=== PATIENT | male | born 1960 | race Two or more races ===

== ENCOUNTER → 2016-08-04 | Outpatient (CLI) | payer BC ==
[~2016-08-04] MED LIST: AMLODIPINE BESYL5 MG PO; ASPIRIN81 M2 PO; ASPIRIN81 MG PO; ATORVASTATIN CA20 MG PO; FISH OIL 1,2001 EAC5 PO; FISH OIL 500 M1 EAC1 PO; FISH OIL 500 MG1 CAP PO; FISH OIL CONCET1 CAP PO; GARLIC1 CAP PO; GARLIC1 EACH PO; GARLIQUE5000 MCG PO; GLUCOPHAGE850 MG PO; HYDROCODON-ACE1 EAC7 PO; LEVAQUIN PO; LIPITOR20 MG PO; MEGA MULTIVIT1 EAC1 PO; METOPROLOL SUCC25 MG PO; METOPROLOL TART25 MG PO; MULTIVITAMINS1 EAC3
[2016-08-05 00:01] LABS: CHOLESTEROL 129 mg/dL (0-200); HDL CHOLESTEROL 32 mg/dL (29-75); LDL CHOLESTEROL 72 mg/dL (-130); LDL/HDL RATIO 2 RATIO (0-4); TRIGLYCERIDES 126 mg/dL (10-160)
== END | disposition home or self-care (01) ==
LOC: CLAB 23:11
PROVIDERS: Internal Medicine Cardiovascular Disease
DX: E78.4 Other hyperlipidemia (principal)
CPT/HCPCS: 80061

== ENCOUNTER 2016-10-23 10:18 | Inpatient (IN) | payer BC ==
[~2016-10-23] VITALS: Ht 147.3 cm; Wt 60.0 kg
--- NOTE | ~2016-10-23 | CO ---
Unit #: [id number] #: [id number] Patient: OXANA MORSE [id number] [address] [place], [place] [address] [id number] MR#: [id number] NAME: OXANA MORSE ROOM: [facility] Age: 56 Sex: M Admission Date: 10/23/2016 : 1960 Attending Physician: Jake Umaña M.D. Primary Care Physician: David Canada M.D. Consultation Date: 10/24/2016 CONSULTATION REPORT REASON FOR CONSULT ICU management. CHIEF COMPLAINT Unable to obtain from the patient but on presentation was abdominal pain, nausea, vomiting. HISTORY OF PRESENT ILLNESS This is a very pleasant 56-year-old male with past medical history significant for hypertension, hyperlipidemia, coronary artery disease and coronary artery ectasia who presented to the emergency room with complaint of nausea and nonbloody vomiting associated with progressive abdominal pain. His workup was consistent with leukocytosis, and CT abdomen showed acute and complicated appendicitis. The patient was given IV Zosyn in the emergency room; however, he developed an allergic reaction to it, including facial swelling that later progressed to airway swelling. The patient was rushed to the operating room where he had a very difficult airway management and, per report, the patient took about 40 minutes to get intubated with a size 6 tube. The patient currently is postop day 1. He is on the vent. He is awake, alert, following commands. He has a leak when we deflated his cuff. His vent settings are appropriate, and his oxygenation is 100%. PAST MEDICAL HISTORY 1. Hypertension. 2. Hyperlipidemia. 3. Coronary artery disease. PAST SURGICAL HISTORY 1. Total prostatectomy. 2. Ventral hernia repair. 3. Laparoscopic preperitoneal bilateral inguinal hernia repair. 4. Tonsillectomy. 5. Left knee surgery. ALLERGIES Zosyn, penicillin. HOME MEDICATIONS 1. Metoprolol. Unit #: [id number] #: [id number] Patient: OXANA MORSE 2. Atorvastatin. 3. Amlodipine. 4. Aspirin. 5. Fish oil. FAMILY HISTORY Hypertension. SOCIAL HISTORY No history of alcohol, drug abuse or smoking. He currently works at 2 different jobs. REVIEW OF SYSTEMS Unable to obtain from the patient at this point. PHYSICAL EXAMINATION GENERAL: Patient is awake, alert, in no acute distress. VITAL SIGNS: Blood pressure 120/62, respiratory rate 18, O2 saturation 99%. HEENT: Atraumatic, normocephalic. PERRLA, EOMI. NECK: Supple. No JVD. No lymphadenopathy. CHEST: Clear to auscultation bilaterally. HEART: S1, S2. No murmur, gallops or rubs. ABDOMEN: Soft, tender to palpation with mild distention and ERUM drain in place with clean dressing. EXTREMITIES: No edema or cyanosis. SKIN: No rashes. PAINT COATING MACHINE OPERATOR: Awake, alert, following commands, on the ventilator. LABS AND OTHER TESTS LABS: Creatinine 1, sodium 133, calcium 7.4. White blood count 12, hemoglobin 14.5. IMAGING: Imaging tests are reviewed and noted by me. ASSESSMENT 1. Acute hypoxic respiratory failure. 2. Acute appendicitis. 3. Anaphylactic shock. 4. Hypertension. 5. Hyperlipidemia. 6. Coronary artery disease. 7. Hyponatremia. 8. Leukocytosis. PLAN 1. The patient is critical, on the ventilator; however, he is better than yesterday. We will assess for spontaneous breathing trial with positive leak test. 2. Preferably he will be extubated in the operating room for airway safety. 3. Will continue antibiotics and will avoid penicillin antibiotics due to reaction. 4. IV hydration. 5. Pain management. 6. DVT and GI prophylaxis. NOTE: Critical care time spent on this patient was 35 minutes. Unit #: [id number] #: [id number] Patient: OXANA MORSE Dictated by... Luzma Simmons TD: 10/24/2016 09:23 JOB #: [id number] CONSULTATION REPORT Page 1 of 1 X EBCKY AUGUSTE MD CONSULTATION REPORT
--- NOTE | ~2016-10-23 | CR72 ---
[facility] A Service of [facility] & [facility] RADIOLOGY TEXT RESULTS PATIENT: OXANA MORSE LOCATION: [address] : [birth year] UNIT #: [id number] AGE: [address]: Jake Umaña MD SEX: M ORDER DR: [id number] [facility] [address]. [place], [place] [address] [id number] I MR#: [id number] Acc #: [id number] NAME: OXANA MORSE. : 1960 SEX: M STUDY DATE/TIME: 10/23/2016 18:14 UNIT: [facility] ROOM: [facility] STUDY DESCRIPTION: CR Chest Single View Portable Attending Physician: Jake Umaña M.D. Ordering Physician: Kevon Jj M.D. Primary Care Physician: David Canada M.D. MEDICAL IMAGING REPORT This report is preliminary unless electronic signature is present EXAM Portable chest x-ray 10/23/2016 HISTORY Endotracheal tube placement. FINDINGS AP radiograph of the chest is presented. No comparisons. Endotracheal tube is present. Exact location of the patient's oswaldo is unclear on basis of this examination, but the endotracheal tube is probably at or just above the level of the oswaldo. For placement in mid thoracic trachea, consider withdrawal by about 2 cm and radiographic reassessment. The heart is probably upper limits of normal in size to borderline enlarged. The appearance may be influenced by the low lung volumes. The right lung is clear. Patchy and linear/band-like densities left lung base and in the retrocardiac region. Some component likely atelectatic in nature. Pneumonia is a consideration. Given location, correlate with any risk factors for aspiration. The left upper lung zone is clear. No pleural effusion or pneumothorax. 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 There are surgical skin gertrudis along the midline abdomen. There is an enteric tube which terminates in the region of mid stomach. There are dilated loops of small bowel in the visualized abdomen measuring up to about 3 cm in diameter. Small bowel disproportionately distended relative to the visualized colon. Some air is seen in colon. Appearance raises concern for possible small bowel obstruction. There is evidence of abdominal surgery and the possibility of ileus could be considered. Please correlate with the patient's clinical status. Consider assessment with abdominal radiographs, if it would assist in management. There is no indication of free air. Dictated by... [facility]. [facility] A Service of [facility] RADIOLOGY TEXT RESULTS PATIENT: OXANA MORSE LOCATION: [place] [address]-18 : 56 UNIT #: [id number] AGE: [address]: Jake Umaña MD SEX: M ORDER DR: Timothy Hamm M.D. THIS IS AN ELECTRONICALLY VERIFIED REPORT Timothy Hamm M.D. at 10/24/2016 3:16 PM SERENITY/shravan TD: 10/23/2016 22:40 JOB #: [id number] MEDICAL IMAGING REPORT Page 1 of 1 COPY
--- NOTE | ~2016-10-23 | FU ---
[facility] Nutrition Therapy DATE: 10/26/16 Patient: OXANA MORSE Physician: VIKTORIA Address: [address] [place] [address] Room/Bed: [address] [place] [address], Zip: [place] [address] Admit Date: 10/23/16 Date of : 56 Height: 4 10 Weight: 132 60 NUTRITION MONITORING/FOLLOW-UP: Reason: PT SEEN FOR FOLLOW-UP DX: APPENDICITIS Anthropometrics: 4'10", WT: 132# (60 KG), BMI: 27.6 -ADMIT WEIGHT: 119# Labs: CA+:7.6, ALB: 2.3, PHOS: 2.1, PRE-ALB: 6.1, AMYLASE: 60 Meds: NACL, ZOFRAN, PROTONIX, REGLAN I&O's: 5317/2985 Skin: PREVIOUSLY NOTED Estimated Nutrition Needs: [id number] KCAL 65-81 G PRO Assessment: CHART REVIEWED AND EVENTS NOTED. PT SEEN FOR FOLLOW-UP. PT IS S/P EXTUBATION ON 10/24, TRANSFERRED TO FROM ICU. PT IS POD#3 FOR EXPLORATORY LAP AND APPENDECTOMY. PT ON REGULAR DIET, NOTING TOLERATING PO INTAKE. PT HAD BREAKFASY TRAY AT BEDSIDE-NOTED 100% CONSUMED. THIS RD ENCOURAGED SLOW GRADUAL PO INTAKE (+ ADEQUATE KCAL AND PROTEIN INTAKE, PT AGREED TO ENSURE SHAKES, RD TO ORDER). RD ALSO PROVIDED WRITTEN AND VERBAL HOME HH DIET EDUCATION. PT AND FAMILY AT BEDSIDE REPORTED NO DIET QUESTIONS AT THIS TIME. RD TO FOLLOW/REMAIN AVAILABLE. Dx: INADEQUATE PROTEIN-ENERGY INTAKE R/T CLINICAL CONDITION, BOWEL SURGERY AEB NPO STATUS.-RESOLVED NEW Dx: ALTERED NUTRIENT UTILIZATION R/T PMH AEB NEED FOR THERAPEUTIC DIET ORDER (PER RD). Intervention: 1. REGULAR DIET 2. ENSURE SHAKES BID 3. DIET EDUCATION Monitoring, Evaluation and Goals: 1. NUTRITION; MONITOR FOR TPN VS. EN VS. PO DIET-MET/IN PROGRESS 2. MEET PT'S ESTIMATED NUTRIENT NEEDS ONCE MEDICALLY FEASIBLE-MET/IN PROGRESS 3. IMPROVE LABS; NA+, GLU, MG+, AMYLASE-IN PROGRESS/MET 4. GI; PROMOTE REGULAR GI FUNCTION-IN PROGRESS 5. SKIN; PREVENT BREAKDOWN, PROMOTE HEALING-IN PROGRESS NEW GOAL (IN ADDITION TO ABOVE GOALS) [facility] Nutrition Therapy DATE: 10/26/16 Patient: OXANA MORSE Physician: VIKTORIA Address: [address] Room/Bed: [address] [place] [address], Zip: [place] [address] Admit Date: 10/23/16 Date of : 56 Height: 4 10 Weight: 132 60 1. ORAL INTAKE; CONSUME/TOLERATE >50% OF MEALS AND SUPPLEMENTS Recommendations: 1. PLEASE ORDER CHOCOLATE ENSURE SHAKES BID W/MEALS FOR SUPPLEMENTAL NUTRITION 2. IF PT CONSUMES >50% OF MEALS, RECOMMEND TO CHANGE CURRENT DIET ORDER TO HEALTHY HEART 2'PMH 3. ENCOURAGE SLOW GRADUAL PO INTAKE RD WILL F/U PER PROTOCOL PT IS MILDLY COMPROMISED Respectfully, ANDREAS CARY MS, RD, LD [employer] cc: client file
--- NOTE | ~2016-10-23 | DS ---
Unit #: [id number] #: [id number] Patient: OXANA MORSE [id number] [address] [place], [place] [address] [id number] MR#: [id number] NAME: OXANA MORSE ROOM: 232 Age: 56 Sex: M Admission Date: 10/23/2016 : 1960 Discharge Date: 10/27/2016 Attending Physician: Jake Umaña M.D. Primary Care Physician: David Canada M.D. DISCHARGE SUMMARY HISTORY Mr. Morse is a 56-year-old gentleman who presented to the emergency room with a 3-day history of abdominal pain and, on CT scan, appeared to have acute appendicitis. He was taken to the operating room where he was found to have perforated appendicitis. He was able to undergo an open appendectomy with placement of a drain. 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 Christensen of urology saw the patient and dilated his stricture and placed a Hdz catheter. Because of that, the catheter needs to be left for a full 7 days postoperatively. That has been explained to the patient in detail, and his Hdz has been put to a leg bag. From his abdominal standpoint, his drainage was minimal and serosanguineous, and we were able to remove the drain on the fourth postoperative day. His wound is healing without complication, and he is tolerating a regular diet and having normal bowel movements. He is also ambulating independently. Again, his wound is healing without complication. I went over discharge instructions with the patient and his . They will call and make an appointment to follow up in the office on Monday when I will remove his catheter. He will complete a course of Levaquin because of his perforated appendicitis. He was left a prescription for hydrocodone for pain. Please note that, when he was in the emergency room, he stated he had no allergies to medications, but he was given a dose of Zosyn and had an allergic reaction, so he now has an allergy to penicillin. Dictated by... Jake Umaña M.D. CORTEZ/benjamin TD: 10/27/2016 07:26 JOB #: [id number] Unit #: [id number] #: [id number] Patient: OXANA MORSE DISCHARGE SUMMARY Page 1 of 1 X Jake Umaña MD X DISCHARGE SUMMARY
--- NOTE | ~2016-10-23 | CO ---
Unit #: [id number] #: [id number] Patient: OXANA MORSE [id number] [address] [address] [id number] MR#: [id number] NAME: OXANA MORSE ROOM: Age: 56 Sex: M Admission Date: 10/23/2016 : 1960 Primary Care Physician: David Canada M.D. Consultation Date: 10/23/2016 CONSULTATION REPORT HISTORY OF PRESENT ILLNESS Mr. Morse is a 56-year-old gentleman who presented to the emergency room with a 24-hour history of worsening abdominal pain associated with nausea and nonbloody vomiting. He was noted to have localization of the pain in the right lower quadrant and on laboratory evaluation had leukocytosis. CT scan was obtained that was consistent with acute, uncomplicated appendicitis. PAST MEDICAL HISTORY 1. Previous total prostatectomy. 2. Ventral hernia repair with mesh. 3. Laparoscopic preperitoneal bilateral inguinal hernia repair. 4. Hypertension. 5. Hypercholesterolemia. 6. Angioplasty with stenting. 7. Tonsillectomy. 8. Left knee surgery. ALLERGIES He is allergic to penicillin and had a reaction here in the emergency room. HOME MEDICATIONS 1. Metoprolol. 2. Atorvastatin. 3. Amlodipine. 4. Aspirin. 5. Fish oil. He has not had a flu vaccine. FAMILY HISTORY Negative. SOCIAL HISTORY Denies the use of tobacco. He is a social alcohol drinker. He is currently working at two different jobs. REVIEW OF SYSTEMS In the emergency room, he received Zosyn and developed periorbital edema. No shortness of breath, rash, or hives. He denies any hematemesis. PHYSICAL EXAMINATION VITAL SIGNS: Temperature is 98.8, pulse 101, respirations 16, and blood pressure 127/90. Unit #: [id number] #: [id number] Patient: OXANA MORSE GENERAL: Patient is awake, alert, oriented, cooperative, and in good spirits. HEENT: Periorbital edema and heriberto sclerae. No carotid bruits. CARDIAC: Regular rate and rhythm without murmur. LUNGS: Clear throughout. ABDOMEN: Localized right lower quadrant pain with rebound tenderness. No diffuse peritonitis. EXTREMITIES: No edema. NEUROLOGIC: Grossly intact. SKIN: No skin rashes or lesions. DIAGNOSTIC STUDIES LABORATORY: Hemoglobin 17.6, hematocrit 50.3, white count 23,400, platelets 227,000, MCV is 112.7 and MCH is 39.4. Basic metabolic panel is within normal limits. Calcium is 8.6. Total bilirubin is 4.8 with an indirect of 4.2. AST, ALT and alkaline phosphatase are normal. Lipase is normal. Urinalysis is nitrite positive but 0-2 white cells and 0-2 red cells. IMAGING: CT scan is consistent with acute appendicitis. ASSESSMENT AND PLAN 1. Acute appendicitis. I discussed laparoscopic appendectomy including risks, benefits, complications, and the possibility of conversion to an open procedure. Due to his previous abdominal surgeries, he is at increased risk for conversion to the open procedure. Patient understands and agrees to proceed. We have added penicillin to his allergy list. 2. Elevated indirect bilirubin consistent with possible Gilbert syndrome. 1. 1. Dictated by... Luzma Renteria/shanita TD: 10/23/2016 18:29 JOB #: [id number] CONSULTATION REPORT Page 1 of 1 X Jake Umaña MD X CONSULTATION REPORT
--- NOTE | ~2016-10-23 | OR ---
Unit #: [id number] #: [id number] Patient: OXANA MORSE [id number] [address] [place], [place] [address] [id number] MR#: [id number] NAME: OXANA MORSE ROOM: [facility] Date of Procedure: 10/23/2016 Admission Date: 10/23/2016 Surgeon: Jake Umaña M.D. : 1960 Attending Physician: Jake Umaña M.D. Primary Care Physician: David Canada M.D. OPERATIVE REPORT PREOPERATIVE DIAGNOSIS Acute appendicitis. POSTOPERATIVE DIAGNOSIS Perforated appendicitis with abscess and feculent drainage. PROCEDURE PERFORMED Diagnostic laparoscopy converted to exploratory laparotomy with appendectomy, washout of abdominal cavity and placement of Jose David-Elliott drain. ANESTHESIA General endotracheal anesthesia. ESTIMATED BLOOD LOSS 200 mL. INDICATIONS FOR PROCEDURE This is a 56-year-old gentleman, who presented to the emergency room with abdominal pain since Monday. He got somewhat better on Monday, but worsened today and came to the emergency room. In the emergency room, he was warm to touch [place] [address] scan was consistent with acute appendicitis, but perforation was not seen on CT. We discussed laparoscopic appendectomy with possibility conversion to open procedure and was taken to the operating room. In the emergency room, Zosyn had been ordered by the ER physician, and while he was getting the Zosyn, he had an allergic reaction with periorbital edema. It was stopped and Benadryl was ordered. He was not short of breath. DESCRIPTION OF PROCEDURE The patient was transported from the emergency room to the operating room, and in the operating room, on intubation, it was found that he had some edema and swelling and it was a very difficult intubation. However, once he was intubated, an NG tube was placed. A Hdz catheter was attempted to be placed. He has had a history of a prostatectomy and the Hdz catheter could not be placed, so coude catheter was used and I was able to get the coude catheter and then decompress his bladder, but it would not pass into the bladder fully and there was some resistance when trying to blow up the balloon. So, I opted not to blow it up and to decompress his bladder the best we could and remove the catheter. We will consult Urology postop for placement of a catheter if needed. After that, he was prepped and draped in the usual sterile fashion. A 1-cm supraumbilical Unit #: [id number] #: [id number] Patient: OXANA MORSE incision was made. We dissected down, opened the fascia, entered the peritoneal cavity. Under direct vision, we placed stay sutures and a Danielito trocar. Pneumoperitoneum was created. A laparoscope was introduced into the peritoneal cavity and then a 5-mm suprapubic trocar was placed under direct vision. The patient was placed in Trendelenburg position with rotation to the left and I exposed the right lower quadrant. There was a great deal of exudate purulent drainage and what appeared to be feculent drainage with tissue necrosis. The appendix could not be completely identified and the base of the cecum was in question, so I opted to remove the trocars and laparoscope and converted to exploratory laparotomy. The trocar sites were connected into a midline incision, entered the peritoneal cavity, took down adhesions, and then mobilized the bowel and evaluated the right lower quadrant. The cecum and ascending colon were mobilized, and the cecum and the appendix were brought up into the wound. We packed off the right lower quadrant. The necrotic appendix was identified and I could follow it down to the base of the appendix where it entered the cecum. The appendix was clamped, divided, and suture ligated, and it was inverted with 2-0 silk sutures. There was a great deal of reaction to the cecum and some of the surrounding terminal ileum, but the bowel was otherwise healthy. One or two areas on the cecum that were particularly friable, were oversewn with 3-0 silk interrupted suture to invert the areas of concern. We carefully ran the entire small bowel and no other areas of concern were noted. I then copiously irrigated the pelvis and the peritoneal cavity and suctioned out all the purulent drainage and ensured there was adequate hemostasis. Due to the large area of the abscess cavity and the feculent drainage, a Jose David-Elliott drain was placed in the right lower quadrant and pelvis through a separate stab incision. Once the drain was positioned, it was secured with 2-0 silk suture. I then placed the bowel back in the anatomic position. The colon was evaluated and was otherwise unremarkable. The gallbladder had no palpable stones. The NG tube was well positioned. Once the bowel was placed back in the anatomic position, the omentum was pulled over the bowel. A Fish retractor was placed and the fascia was closed with #1 Vicryl interrupted sutures. Once the fascia was closed and the Fish removed, sponge counts were correct. I then irrigated the soft tissue with saline followed by Betadine, obtained hemostasis, and closed the skin with sterile skin gertrudis. A Jose David-Elliott drain was placed to bulb suction. Sponges and needle counts were correct x3. The patient was left on the ventilator and transported to recovery. Findings and postoperative expectations and concerns were discussed with his . Dictated by... Luzma Renteria/mariusz TD: 10/24/2016 05:42 JOB #: [id number] Unit #: [id number] #: [id number] Patient: OXANA MORSE OPERATIVE REPORT Page 1 of 1 X Jake Umaña MD X PROCEDURE OPERATIVE NOTE
--- NOTE | ~2016-10-23 | A ---
[facility] Nutrition Therapy DATE: 10/24/16 Patient: OXANA MORSE Physician: VIKTORIA Address: [address] [facility] Room/Bed: [address], Zip: [place] [address] Admit Date: 10/23/16 Date of : 56 Height: 4 10 Weight: 119 54 NUTRITIONAL ASSESSMENT: REASON: NPO status in ICU, EN/ TPN Nutrition assessment 56 yo male admitted for appendicitis s/p exploratory lapartomy, appendectomy PMH: Ventral hernia, prostectomy, HTN, hypercholesterolemia, CAD, angioplasty + stenting Anthropometrics: Ht: 4'10" Wt: 54 kg BMI: 24.9 Labs: Na+ 133 Gluc 191 Ca++ 7.4 Alb 2.5 Mg++ 1.4 Amylase 60 Meds: NaCl, solu-medrol, fentanyl, versed, zofran, KCl, protonix I/O & Bowel function: 3660/845, last BM 10/23, distended abdomen noted Skin Integrity: Scars BLE Mepiplex to coccyx Surgical site to abdomen Edema: no edema documented Estimated Nutrition Needs: 7561-8783 kcals (28-32 kcals/kg) 65-81 grams protein (1.2-1.5 grams/kg) Diet: NPO Assessment: Chart reviewed, events noted. 56 yo male admitted for perforated appendicitis with abscess and feculant drainage, is now POD#1 for exploratory laparatomy and appendectomy. Possible ileus also noted in the chart. Pt was extubated this morning, and has an NG to LWS and ERUM drain. RD was consulted to assess the pt for EN vs. TPN with orders not to start nutrition support yet. RD spoke with the pt and his family at bedside. Pt denies having an appetite at this time, but states that he is very thirsty. RD explained nutrition support vs. PO diet options, and that the surgical team would determine what nutritional course will be appropriate. Pt reports that he last ate on Monday night (10/22), and that his nutritional intake was normal prior to that. Pt does not appear to be malnourished per RD assessment and observation. Please see recommendations below. Dx: Inadequate protein-energy intake RT clinical condition, bowel surgery AEB NPO status. Intervention: [facility] Nutrition Therapy DATE: 10/24/16 Patient: OXANA MORSE Physician: VIKTORIA Address: [address] [place] [address] Room/Bed: [address], Zip: [place] [address] Admit Date: 10/23/16 Date of : 56 Height: 4 10 Weight: 119 54 1. NPO 2. Once medically feasible, attempt EN 3. If EN is not feasible, initiate TPN 4. Advance to PO diet once medically feasible Monitoring, Evaluation and Goals: 1. Nutrition; monitor for TPN vs. EN vs. PO diet 2. Meet the pt's estimated nutrient needs once medically feasible 3. Improve labs; Na+, glucose, Mg++, Amylase 4. GI; promote regular GI function 5. Skin; prevent breakdown, promote healing Recommendations: 1. Recommend to keep the pt NPO at this time until bowel function can be further assessed. 2. If NGT to LWS is discontinued and pt is deemed appropriate for PO intake per surgical team, consider advancing to clear liquid diet as tolerated. 3. If the pt is unable to take nutrition PO, recommend attempting enteral nutrition if deemed appropriate per surgical team. If ordered by MD, would initiate EN with trickle feeds using (semi-elemental formula) Vital 1.5 @ 15 mL/hr. Monitor closely for symptoms of intolerance and residuals per protocol. -If the pt is able to tolerate trickle feeds, advance by 10 mL q 12 hrs as tolerated to goal of Vital 1.5 @ 50 mL/hr to provide: 1800 kcals/ 81 grams protein/ 912 mL free H20 4. If the pt is unable to tolerate enteral nutrition, or if EN is not feasible, consider initiating TPN per ASPEN guidelines (if anticipated to be > 7 days, not starting before day 7 of hospitalization since the pt does not appear to be malnourished). -If ordered by MD, recommend TPN (25% dextrose) with goal rate of 60 mL/hr to provide: 1224 kcals dextrose 1512 kcals total 72 grams protein GUR= 4.6 Please obtain a current triglyceride level before determining lipid cycling, as the pt has a h/o hyperlipidemia Pt is at moderate-severe nutritional risk. [facility] Nutrition Therapy DATE: 10/24/16 Patient: OXANA MORSE Physician: VIKTORIA Address: [address] [facility] Room/Bed: [address], Zip: [place] [address] Admit Date: 10/23/16 Date of : 56 Height: 4 10 Weight: 119 54 Respectfully, CHITRA MACIAS RD, LD [facility] cc: client file
--- NOTE | ~2016-10-23 | CR72 ---
[facility] A Service of [facility] RADIOLOGY TEXT RESULTS PATIENT: OXANA MORSE LOCATION: [place] [id number] : 56 UNIT #: [id number] AGE: [address]: Jake Umaña MD SEX: M ORDER DR: [id number] [place] [id number] [facility]. [place], [place] [address] [id number] MR#: [id number] Acc #: [id number] NAME: OXANA MORSE : 1960 SEX: M STUDY DATE/TIME: 10/24/2016 3:34 UNIT: [facility] ROOM: [facility] STUDY DESCRIPTION: CR Chest Single View Portable Attending Physician: Jake Umaña M.D. Ordering Physician: Vickie Finney M.D. Primary Care Physician: David Canada M.D. MEDICAL IMAGING REPORT This report is preliminary unless electronic signature is present EXAM Chest x-ray 10/24/2016 HISTORY Postop abdominal surgery. Patient on ventilator. Follow up cardiopulmonary status. TECHNIQUE AP portable chest x-ray. FINDINGS Lung volumes remain low postop abdominal surgery, but the left lung base infiltrate or atelectasis present on yesterday's study appears improved. Cardiomediastinal silhouette is within normal limits. ETT in good position. NG tube tip is in the upper portion of the stomach just below the esophagogastric junction. Old ununited right clavicle fracture. IMPRESSION 1. Improved left basilar atelectasis since yesterday. Low lung volumes. 2. Endotracheal tube tip in the uppermost stomach just below the EG junction. Dictated by... Zay Hayward M.D. THIS IS AN ELECTRONICALLY VERIFIED REPORT Zay Hayward M.D. at 10/24/2016 8:56 PM ALFRED/mena TD: 10/24/2016 09:22 JOB #: [id number] [facility] A Service of [facility] RADIOLOGY TEXT RESULTS PATIENT: OXANA MORSE LOCATION: [facility] [id number] : 56 UNIT #: [id number] AGE: [address]: Jake Umaña MD SEX: M ORDER DR: MEDICAL IMAGING REPORT Page 1 of 1 COPY
--- NOTE | ~2016-10-23 | CT4 ---
[facility]. [facility] A Service of [facility] RADIOLOGY TEXT RESULTS PATIENT: OXANA MORSE LOCATION: [facility] : 56 UNIT #: [id number] AGE: [address]: Lei Mccall MD SEX: M ORDER DR: [id number] [facility] [address] [place], [place] [address] [id number] MR#: [id number] Acc #: [id number] NAME: OXANA MORSE : 1960 SEX: M STUDY DATE/TIME: 10/23/2016 11:41 UNIT: [facility] ROOM: STUDY DESCRIPTION: CT Abd and Pelv Wo Cont Attending Physician: Lei Mccall M.D. Ordering Physician: Lei Mccall M.D. Primary Care Physician: David Canada M.D. MEDICAL IMAGING REPORT This report is preliminary unless electronic signature is present EXAM CT abdomen and pelvis without contrast. HISTORY Right lower quadrant pain since yesterday. COMPARISON There is no comparison. TECHNIQUE Axial 3 mm images were obtained through the abdomen and pelvis without IV or oral contrast. There are sagittal and coronal reconstructions. This CT exam was performed with one or more of the following radiation dose reduction techniques: automatic exposure control, adjustment of mA and/or kV according to patient size, and iterative reconstruction. FINDINGS Lung bases are clear. The liver, gallbladder, spleen, pancreas, adrenal glands, and kidneys are normal. The aorta is normal in size and there is no adenopathy. The appendix is markedly dilated and contains at least 2 stones. It measures up to 1.8 cm in diameter. There is marked inflammation surrounding the gallbladder and the cecum. The terminal ileum appears normal. The appendix lies inferior to the cecum. There seems to be actually some wall thickening involving the distal ileum. There is some free fluid in the pelvis. The bladder and prostate gland are normal. There is a small right hydrocele visible. IMPRESSION The patient appears to have acute appendicitis with a markedly dilated appendix that lies inferior to the cecum. It contains an appendicoliths and is surrounded by inflammation which is causing some mild wall STS. [facility] A Service of [facility] RADIOLOGY TEXT RESULTS PATIENT: OXANA MORSE LOCATION: [facility] : 56 UNIT #: [id number] AGE: [address]: Lei Mccall MD SEX: M ORDER DR: thickening in the cecum and distal ileum. Dictated by... Paxton Leyva M.D. THIS IS AN ELECTRONICALLY VERIFIED REPORT Paxton Leyva M.D. at 10/23/2016 3:30 PM NENA/abdi TD: 10/23/2016 14:13 JOB #: [id number] MEDICAL IMAGING REPORT Page 1 of 1 COPY
[~2016-10-23 10:18] MED LIST changes: -ASPIRIN81 MG PO; -FISH OIL 1,2001 EAC5 PO; -GARLIC1 EACH PO; -GLUCOPHAGE850 MG PO; -HYDROCODON-ACE1 EAC7 PO; -LEVAQUIN PO; -LIPITOR20 MG PO; -METOPROLOL SUCC25 MG PO; -MULTIVITAMINS1 EAC3
[2016-10-23 11:28] LABS: BASOPHIL% 0.1 % (0-2.5); DIFF IND YES; HEMATOCRIT 50.3 % (38.0-50.0); HEMOGLOBIN 17.6 gm/dL (13.0-16.0); LYMPHOCYTE# 0.8 X10e3 (1.0-3.5); LYMPHOCYTE% 3.3 % (17.0-45.0); MEAN CELL VOLUME 112.7 FL (83-96); MEAN CORPUSCULAR HEMOGLOBIN 39.4 PG (28-34); MEAN PLATELET VOLUME 9.4 FL (6.5-11.5); MONOCYTE# 1.7 X10e3 (0-1.0); MONOCYTE% 7.3 % (3.0-12.0); NEUTROPHIL# 20.9 X10e3 (1.5-7.1); NEUTROPHIL% 89.3 % (40-75); PLATELET COUNT 227 X10e3 (140-420); RED BLOOD COUNT 4.47 X10e (3.90-5.60); RED CELL DISTRIBUTION WIDTH 15.6 % (11.0-15.5); WHITE BLOOD COUNT 23.4 X10e3 (4.0-10.5)
[2016-10-23 11:43] LABS: URINE SOURCE CLEAN CATCH
[2016-10-23 11:50] LABS: BILIRUBIN, DIRECT 0.6 mg/dL (0.0-0.2); BILIRUBIN,INDIRECT 4.2 mg/dL (0.0-0.9); BILIRUBIN,TOTAL 4.8 mg/dL (0.2-2.0); CALCIUM SERUM 8.6 mg/dL (8.4-10.2); GLOM FILT RATE Estimated 82.6 mL/min (>60); POTASSIUM 3.6 mmol/L (3.5-5.1); PROTEIN TOTAL SERUM 7.9 g/dL (6.0-8.3)
[2016-10-23 11:51] LABS: URINE APPEARANCE CLEAR; URINE BLOOD NEG (NEG); URINE COLOR ORANGE; URINE GLUCOSE NEG (NEG); URINE KETONE TRACE (NEG); URINE LEUKOCYTE ESTERASE TRACE (NEG); URINE NITRATE POS (NEG); URINE PROTEIN 1+ (NEG); URINE SPECIFIC GRAVITY 1.022 (1.003-1.035)
[2016-10-23 11:53] LABS: URBCS1 AUWI 0-2 /[HPF] (0-2); URINE BACTERIA AUWI NEG (NEGATIVE); URINE SQUAMOUS EPITHELIAL CELL NONE SEEN /[HPF]; UWBCS1 AUWI 0-2 (0-5)
[2016-10-23 12:03] LABS: PLATELET ESTIMATE NORMAL (NORMAL)
[2016-10-23 12:05] LABS: ANISOCYTOSIS MOD
[2016-10-23 12:10] LABS: CULTURE INDICATED? NO; URINE BILIRUBIN POS (NEG)
[2016-10-23 12:13] LABS: URINE MUCUS PRESENT
[2016-10-23] MEDS ORDERED: METOPROLOL SUCC25 MG PO (14:35)
[2016-10-23] MEDS ORDERED: ASPIRIN81 MG PO (14:36)
[2016-10-23] MEDS ORDERED: AMLODIPINE BESYL5 MG PO (14:36)
[2016-10-23] MEDS ORDERED: LIPITOR20 MG PO (14:36)
[2016-10-23] MEDS ORDERED: MULTIVITAMINS1 EAC3 (14:37)
[2016-10-23] MEDS ORDERED: FISH OIL 1,2001 EAC5 PO (14:37)
[2016-10-23] MEDS ORDERED: GLUCOPHAGE850 MG PO (14:44)
[2016-10-23 18:49] LABS: ARTERIAL BLD GAS O2 SATURATION 97.1 % (90.0-100.0); ARTERIAL BLOOD GAS ALLEN TEST NORMAL; ARTERIAL BLOOD GAS ART SITE LEFT RADIAL; ARTERIAL BLOOD GAS CARBOXY HB 1.2 %sat (0.0-9.0); ARTERIAL BLOOD GAS DELIVERY VENT; ARTERIAL BLOOD GAS HCO3 23.3 mmol/L; ARTERIAL BLOOD GAS MET HB 0.7 %sat (0.0-2.0); ARTERIAL BLOOD GAS PCO2 42.1 mmHg (35.0-45.0); ARTERIAL BLOOD GAS VENT MODE AC; ARTERIAL BLOOD GAS pH 7.352 (7.350-7.450); ARTERIAL DRAW? YES
[2016-10-24 04:49] LABS: ARTERIAL BLD GAS O2 SATURATION 98.4 % (90.0-100.0); ARTERIAL BLOOD GAS CARBOXY HB 0.5 %sat (0.0-9.0); ARTERIAL BLOOD GAS HCO3 23.6 mmol/L; ARTERIAL BLOOD GAS MET HB 0.9 %sat (0.0-2.0); ARTERIAL BLOOD GAS PCO2 39.2 mmHg (35.0-45.0); ARTERIAL BLOOD GAS pH 7.387 (7.350-7.450)
[2016-10-24 04:57] LABS: ARTERIAL BLOOD GAS ALLEN TEST NORMAL; ARTERIAL BLOOD GAS ART SITE LEFT RADIAL; ARTERIAL BLOOD GAS DELIVERY VENT; ARTERIAL BLOOD GAS VENT MODE AC; ARTERIAL DRAW? YES
[2016-10-24 05:17] LABS: BASOPHIL% 0.1 % (0-2.5); EOSINOPHIL% 0.2 % (0.0-7.0); HEMATOCRIT 41.3 % (38.0-50.0); LYMPHOCYTE# 0.7 X10e3 (1.0-3.5); LYMPHOCYTE% 5.7 % (17.0-45.0); MEAN CELL VOLUME 114.8 FL (83-96); MEAN CORPUSCULAR HEMOGLOBIN 40.3 PG (28-34); MEAN CORPUSCULAR HGB CONC 35.1 g/dL (30-36); MONOCYTE# 0.6 X10e3 (0-1.0); MONOCYTE% 5.3 % (3.0-12.0); NEUTROPHIL# 10.6 X10e3 (1.5-7.1); NEUTROPHIL% 88.7 % (40-75); PLATELET COUNT 171 X10e3 (140-420); RED CELL DISTRIBUTION WIDTH 15.8 % (11.0-15.5)
[2016-10-24 05:40] LABS: HEMOGLOBIN 14.5 gm/dL (13.0-16.0)
[2016-10-24 05:46] LABS: DIFF IND NO
[2016-10-24 06:25] LABS: ALBUMIN SERUM 2.5 g/dL (3.5-5.0); BILIRUBIN,TOTAL 6.4 mg/dL (0.2-2.0); CALCIUM SERUM 7.4 mg/dL (8.4-10.2); GLOM FILT RATE Estimated 82.6 mL/min (>60); MAGNESIUM 1.4 mg/dL (1.6-3.0); PHOSPHOROUS 2.5 mg/dL (2.5-4.6); POTASSIUM 4.3 mmol/L (3.5-5.1); PROTEIN TOTAL SERUM 5.6 g/dL (6.0-8.3)
[2016-10-25 05:27] LABS: HEMATOCRIT 34.7 % (38.0-50.0); LYMPHOCYTE# 0.5 X10e3 (1.0-3.5); LYMPHOCYTE% 4.5 % (17.0-45.0); MEAN CELL VOLUME 114.6 FL (83-96); MEAN CORPUSCULAR HEMOGLOBIN 39.6 PG (28-34); MEAN CORPUSCULAR HGB CONC 34.6 g/dL (30-36); MEAN PLATELET VOLUME 9.4 FL (6.5-11.5); MONOCYTE# 0.8 X10e3 (0-1.0); MONOCYTE% 7.4 % (3.0-12.0); NEUTROPHIL% 88.1 % (40-75); PLATELET COUNT 158 X10e3 (140-420); RED BLOOD COUNT 3.03 X10e (3.90-5.60); RED CELL DISTRIBUTION WIDTH 15.8 % (11.0-15.5); WHITE BLOOD COUNT 11.4 X10e3 (4.0-10.5)
[2016-10-25 05:30] LABS: DIFF IND NO
[2016-10-25 06:53] LABS: ALBUMIN SERUM 2.3 g/dL (3.5-5.0); BUN/CREATININE RATIO 24.28; CALCIUM SERUM 7.4 mg/dL (8.4-10.2); CREATININE SERUM 0.7 mg/dL (0.6-1.4); GLOM FILT RATE Estimated 104.1 mL/min (>60); MAGNESIUM 2.3 mg/dL (1.6-3.0); PHOSPHOROUS 2.1 mg/dL (2.5-4.6); POTASSIUM 4.4 mmol/L (3.5-5.1); PREALBUMIN 6.1 mg/dL (17.0-42.0); PROTEIN TOTAL SERUM 5.5 g/dL (6.0-8.3)
[2016-10-26 07:21] LABS: BASOPHIL% 0.1 % (0-2.5); HEMATOCRIT 34.4 % (38.0-50.0); LYMPHOCYTE# 0.7 X10e3 (1.0-3.5); LYMPHOCYTE% 6.2 % (17.0-45.0); MEAN CELL VOLUME 113.3 FL (83-96); MEAN CORPUSCULAR HEMOGLOBIN 39.4 PG (28-34); MEAN CORPUSCULAR HGB CONC 34.8 g/dL (30-36); MEAN PLATELET VOLUME 9.4 FL (6.5-11.5); MONOCYTE% 8.5 % (3.0-12.0); NEUTROPHIL# 10.1 X10e3 (1.5-7.1); NEUTROPHIL% 85.2 % (40-75); PLATELET COUNT 159 X10e3 (140-420); RED BLOOD COUNT 3.04 X10e (3.90-5.60); RED CELL DISTRIBUTION WIDTH 15.5 % (11.0-15.5); WHITE BLOOD COUNT 11.9 X10e3 (4.0-10.5)
[2016-10-26 07:29] LABS: DIFF IND NO
[2016-10-26 08:03] LABS: BUN/CREATININE RATIO 27.14; CALCIUM SERUM 7.6 mg/dL (8.4-10.2); CREATININE SERUM 0.7 mg/dL (0.6-1.4); GLOM FILT RATE Estimated 104.1 mL/min (>60); POTASSIUM 4.6 mmol/L (3.5-5.1)
[2016-10-27] MEDS ORDERED: LEVAQUIN PO (07:26)
[2016-10-27] MEDS ORDERED: HYDROCODON-ACE1 EAC7 PO (07:27)
[2016-11-14] MEDS ORDERED: GARLIC1 EACH PO (13:12)
== END 2016-10-27 12:56 | disposition home or self-care (01) | DRG 338 ==
LOC: CED 10:18 → CSUR 15:00 → CICCU3 20:34 → C2A 10-25 13:55
PROVIDERS: Emergency Medicine; Internal Medicine; Specialist
PROC: 3E1M38Z Irrigation of Peritoneal Cavity using Irrigating Substance, Percutaneous Approach (ICD-10-PCS; 2016-10-23)
PROC: 0DTJ0ZZ Resection of Appendix, Open Approach (ICD-10-PCS; principal; 2016-10-23 16:00)
PROC: 0DJD4ZZ Inspection of Lower Intestinal Tract, Percutaneous Endoscopic Approach (ICD-10-PCS; 2016-10-23 16:00)
DX: K35.3 Acute appendicitis with localized peritonitis (principal); J96.01 Acute respiratory failure with hypoxia; T88.6XXA Anaphylactic reaction due to adverse effect of correct drug or medicament properly administered, initial encounter; E87.1 Hypo-osmolality and hyponatremia; T36.0X5A Adverse effect of penicillins, initial encounter; Y92.238 Other place in hospital as the place of occurrence of the external cause; E80.4 Gilbert syndrome; N32.0 Bladder-neck obstruction; Z88.0 Allergy status to penicillin; I25.10 Atherosclerotic heart disease of native coronary artery without angina pectoris; E78.5 Hyperlipidemia, unspecified; I10 Essential (primary) hypertension; Z79.82 Long term (current) use of aspirin; Z90.79 Acquired absence of other genital organ(s); Z82.49 Family history of ischemic heart disease and other diseases of the circulatory system
CPT/HCPCS: 36415; 36600; 71010; 74176; 80048; 80053; 80076; 81003; 82150; 82803; 83605; 83690; 83735; 84100; 84134; 85025; 88304; 94002; 94003; 94760; 96361; 96374; 96375; 97116; 97161; 99285; C9113; G8978-GP; G8979-GP; J0330; J1100; J1170; J1200; J1650; J2250; J2270; J2405; J2543; J2710; J2765; J2930; J3475; J3490

== ENCOUNTER → 2016-11-16 | Day surgery (SDC) | payer BC ==
[~2016-11-16] MED LIST changes: +ASPIRIN81 MG PO; +FISH OIL 1,2001 EAC5 PO; +GARLIC1 EACH PO; +GLUCOPHAGE850 MG PO; +HYDROCODON-ACE1 EAC7 PO; +LEVAQUIN PO; +LIPITOR20 MG PO; +METOPROLOL SUCC25 MG PO; +MULTIVITAMINS1 EAC3
--- NOTE | ~2016-11-16 | EKG ---
PATIENT: OXANA MORSE UNIT #: [id number] Ventricular Rate: 55 BPM Atrial Rate: 55 BPM P-R Interval: 114 ms QRS Duration: 96 ms Q-T Interval: 432 ms QTC Calculation(Bezet): 413 ms P [place]: 61 degrees Calculated R [place]: 33 degrees Calculated T [place]: 47 degrees Diagnosis Line: Sinus bradycardia Diagnosis Line: Otherwise normal ECG Diagnosis Line: When compared with ECG of 01-JUN-2015 09:19, Diagnosis Line: No significant change was found Diagnosis Line: Confirmed by GORAN MICHAEL MD ([id number]) on 11/19/2016 Diagnosis Line: 3:17:29 PM INTERPRETING MD: ALEC FORTUNE
--- NOTE | ~2016-11-16 | OR ---
Unit #: [id number] #: [id number] Patient: OXANA MORSE [id number] [address] [place], [place] [address] [id number] O MR#: [id number] NAME: OXANA MORSE ROOM: Date of Procedure: 11/16/2016 Admission Date: 11/16/2016 Surgeon: Jorge L Townsend M.D. : 1960 Attending Physician: Jorge L Townsend M.D. Primary Care Physician: David Canada M.D. OPERATIVE REPORT PREOPERATIVE DIAGNOSIS Right subcutaneous elbow mass. POSTOPERATIVE DIAGNOSIS Right subcutaneous elbow mass. PROCEDURES PERFORMED Right elbow excisional biopsy. SURVEY STATISTICIAN Tari Sylvester. ANESTHESIA General. ESTIMATED BLOOD LOSS 5 mL. COMPLICATIONS None apparent. SPECIMENS Mass to permanent pathology. INDICATIONS FOR PROCEDURE Oxana is a 56-year-old gentleman with a subcutaneous elbow mass overlying the essentially cubital tunnel area of the right elbow. This is just on the subcutaneous border of the olecranon and extending ulnarly to the medial epicondyle. The skin is quite thin in this area and there is a lobulated type mass under the subcutaneous tissues. This appears consistent almost with gouty tophi, though he has known history of gout. He has had several other smaller areas removed by construction flagger. None of these have returned with any unknown malignancy, but he does not have a diagnosis. Recurrent mass is becoming painful. He would like it removed. Risks, benefits, and alternatives have been reviewed as well as the nature of the surgery. At this point, he elects to proceed. DESCRIPTION OF PROCEDURE The patient was identified in the preoperative holding area. The operative site was marked. Preoperative antibiotics were administered. The patient was brought to the operating room and placed supine on the Unit #: [id number] #: [id number] Patient: OXANA MORSE operating table. A general anesthetic was induced. The patient was positioned supine with the arm across his abdomen. The arm was exsanguinated and tourniquet inflated. An incision was made over the area of the mass. Dissection was carried down through the subcutaneous tissue. This was immediately deep to the epidermal tissue. It was nearly erupting through the skin, making separation of this from the underlying skin difficult. The mass was dissected free circumferentially from the surrounding tissues. It is easily out from the olecranon. There was no violation of the underlying periosteum. There was no violation of the underlying fascia or of the ulnar nerve. The was circumferentially dissected and removed. It was marked with ink distally and a 3-0 nylon suture superficially. Any remaining tophaceous appearing debris material was removed. The wound was irrigated. Bovie electrocautery was performed of any visible vessels taking care to avoid the ulnar nerve in its general proximity. The ulnar nerve itself was identified by digital palpation along the triceps border and into the cubital tunnel, but it is not formally dissected or exposed. This was not necessary. The wound was then closed with 3-0 nylon. Compressive sterile dressing was applied. DISPOSITION Aroused from anesthesia and transferred to the recovery room in stable condition. Dictated by... Luzma Salmeron/mariusz TD: 11/16/2016 19:53 JOB #: [id number] OPERATIVE REPORT Page 1 of 1 X Jorge L Townsend MD X PROCEDURE OPERATIVE NOTE
== END | disposition home or self-care (01) ==
LOC: CSUR 06:36
DX: M79.89 Other specified soft tissue disorders (principal); L92.3 Foreign body granuloma of the skin and subcutaneous tissue; I25.10 Atherosclerotic heart disease of native coronary artery without angina pectoris; K21.9 Gastro-esophageal reflux disease without esophagitis; I10 Essential (primary) hypertension; M19.90 Unspecified osteoarthritis, unspecified site; E78.5 Hyperlipidemia, unspecified; Z85.46 Personal history of malignant neoplasm of prostate; Z88.0 Allergy status to penicillin; Z91.013 Allergy to seafood; Z79.82 Long term (current) use of aspirin; Z79.899 Other long term (current) drug therapy; Z95.5 Presence of coronary angioplasty implant and graft; Z90.79 Acquired absence of other genital organ(s); Z98.890 Other specified postprocedural states
CPT/HCPCS: 88305; 93005; J2250; J3010; J3370